=== PATIENT | female | born 1960 | race African-American/Black ===

== ENCOUNTER 2021-03-09 20:09 | Emergency (ER) | payer SELFPAY ==
[~2021-03-09] VITALS: Ht 167.6 cm; Wt 61.2 kg
[2021-03-09 20:40] VITALS: BP 130/70
== END 2021-03-09 21:58 | disposition left against medical advice (07) ==
LOC: ER 20:11
DX: R53.1 Weakness (principal); Z20.822 Contact with and (suspected) exposure to COVID-19